=== PATIENT | female | born 1960 | race Caucasian/White ===

== ENCOUNTER 2016-12-02 05:10 | Day surgery (SDC) | payer OTHER ==
[~2016-12-02] VITALS: Ht 170.2 cm; Wt 77.1 kg
[~2016-12-02 05:10] MED LIST: HYDROCHLOROTHIA25 MG PO; PRILOSEC OTC20 MG PO; VERAPAMIL HCL120 MG PO; ZONEGRAN100 MG PO
[2016-12-02 06:09] VITALS: BP 127/76
[2016-12-02 09:54] VITALS: BP 146/86
[2016-12-02 10:34] VITALS: BP 144/82
== END 2016-12-02 10:41 | disposition home or self-care (01) ==
LOC: SDC 05:10
DX: M20.62 Acquired deformities of toe(s), unspecified, left foot (principal); G57.62 Lesion of plantar nerve, left lower limb; M72.2 Plantar fascial fibromatosis; I10 Essential (primary) hypertension; K21.9 Gastro-esophageal reflux disease without esophagitis; Z87.891 Personal history of nicotine dependence
CPT/HCPCS: J0131; J0690; J1100; J2250; J2405; J7050; S0020